=== PATIENT | female | born 1965 | race Caucasian/White ===

== ENCOUNTER 2018-10-04 12:08 | Emergency (ER) | payer BC ==
[2018-10-04 12:55] VITALS: BP 137/76
[2018-10-04] MEDS ORDERED: Ipratropium 0.5MG/2.5ML NEB* 0.5 MG/2.5 ML NEB.SOLN INH ONE (13:04)
[2018-10-04] MEDS ORDERED: Albuterol 2.5 MG/3 ML NEB.SOL* (0.083%) INH ONE (13:04)
--- NOTE | 2018-10-04 13:24 | UC ---
Respiratory Complaint HPI - HPI Summary HPI Summary: 53 yo female with chest tightness and wheezing a 1 1/2 weeks ? fever no myalgias fatigued sinus congestion no hx of pneumonia - History of Current Complaint Chief Complaint: UCRespiratory Stated Complaint: COUGH,CONGESTION Time Seen by Provider: 10/04/18 12:43 Hx Obtained From: Patient Onset/Duration: Gradual Onset, Lasting Days Timing: Constant Severity Initially: Mild Severity Currently: Moderate Pain Intensity: 0 Pain Scale Used: 0-10 Numeric Character: Cough: Nonproductive Aggravating Factors: Exertion, Deep Breaths Associated Signs And Symptoms: Positive: Wheezing - Allergies/Home Medications Allergies/Adverse Reactions: Allergies Allergy/AdvReac Type Severity Reaction Status Date / Time environmental Allergy Congestion Uncoded 10/04/18 12:44 Home Medications: Home Medications Albuterol HFA INHALER* [Ventolin HFA Inhaler*] 2 puff INH BID PRN 10/04/18 [ History Confirmed 10/04/18] Budesonide/Formote 80/4.5(NF) [Symbicort 80/4.5 (NF)] 2 puff INH BID 10/04/18 [ History Confirmed 10/04/18] Estradiol/Norethindrone Acet [Combipatch 0.05-0.14 mg Ptch] 1 each TD SEE INSTRUCTIONS 10/04/18 [History Confirmed 10/04/18] Mesalamine [Apriso] 3 tab PO BID 10/04/18 [History Confirmed 10/04/18] Rizatriptan Benzoate [Maxalt[employer]] 10 mg PO SEE INSTRUCTIONS PRN 10/04/18 [ History Confirmed 10/04/18] Topiramate [Topamax] 25 mg PO DAILY 10/04/18 [History Confirmed 10/04/18] PMH/Surg Hx/FS Hx/Imm Hx Previously Healthy: Yes Respiratory History: Asthma, Bronchitis - Surgical History Surgical History: Yes Surgery Procedure, Year, and Place: uterine ablation; tubal 1994 - Social History Alcohol Use: Occasionally Substance Use Type: None Smoking Status (MU): Never Smoked Tobacco Review of Systems All Other Systems Reviewed And Are Negative: Yes Constitutional: Positive: Fatigue Skin: Positive: Negative Eyes: Positive: Negative ENT: Positive: Negative Respiratory: Positive: Cough Cardiovascular: Positive: Negative Gastrointestinal: Positive: Negative Genitourinary: Positive: Negative Neurovascular: Positive: Negative Musculoskeletal: Positive: Negative Neurological: Positive: Negative Psychological: Positive: Negative Physical Exam Triage Information Reviewed: Yes Appearance: Well-Appearing, No Pain Distress, Well-Nourished Vital Signs: Initial Vital Signs Temp 98.6 F 10/04/18 12:49 Pulse 92 10/04/18 12:49 Resp 20 10/04/18 12:49 BP 137/76 10/04/18 12:49 Pulse Ox 100 10/04/18 12:49 Vital Signs Reviewed: Yes Eyes: Positive: Conjunctiva Clear ENT: Positive: Hearing grossly normal. Negative: Nasal congestion, Trismus, Muffled voice, Hoarse voice Neck: Positive: Supple, Nontender, No Lymphadenopathy Respiratory: Positive: No respiratory distress, No accessory muscle use, Wheezing Cardiovascular: Positive: RRR, No Murmur Musculoskeletal: Positive: ROM Intact, No Edema Neurological: Positive: Alert Psychological Exam: Normal Skin Exam: Normal Re-Evaluation - Re-Evaluation Second Eval Re-Evaluation Time: 13:52 Change: Improved - better air movement Respiratory Course/Dx - Differential Dx/Diagnosis Provider Diagnosis: Bronchitis with bronchospasm Discharge - Sign-Out/Discharge Documenting (check all that apply): Patient Departure All imaging exams completed and their final reports reviewed: No Studies - Discharge Plan Condition: Stable Disposition: HOME Prescriptions: Amoxicillin PO (*) [Amoxicillin 875 MG (*)] 875 mg PO BID #14 tab Fluconazole 150 MG (NF) [Diflucan 150 mg (NF)] 150 mg PO ONCE #1 tab predniSONE [Deltasone 20 MG TAB] 40 mg PO DAILY #8 tab Patient Education Materials: Acute Bronchitis (ED) Referrals: Mumtaz Wright [Primary Care Provider] - 4 Days (if not better) - Billing Disposition and Condition Condition: STABLE Disposition: Home
[2018-10-04] MEDS ORDERED: predniSONE TAB* 20 MG PO ONE (13:48)
== END 2018-10-04 14:21 | disposition home or self-care (01) ==
LOC: UCCORT 12:08
DX: J20.9 Acute bronchitis, unspecified (principal); R07.89 Other chest pain; R06.2 Wheezing; R09.81 Nasal congestion; J30.2 Other seasonal allergic rhinitis; Z87.09 Personal history of other diseases of the respiratory system
CPT/HCPCS: 99202; G0463; J7512